=== PATIENT | female | born 1965 | race African-American/Black ===

== ENCOUNTER 2016-10-25 17:45 | Emergency (ER) | payer BC ==
[~2016-10-25] VITALS: Ht 175.3 cm; Wt 60.7 kg
[2016-10-25] MEDS ORDERED: MOTRIN600 MG PO (20:54)
[2016-10-25 21:21] VITALS: BP 111/72
== END 2016-10-25 21:22 | disposition home or self-care (01) ==
LOC: EME 17:45
DX: I82.811 Embolism and thrombosis of superficial veins of right lower extremity (principal)
CPT/HCPCS: 93971; 99281; 99284